=== PATIENT | male | born 1945 | race Caucasian/White ===

== ENCOUNTER 2018-06-25 13:54 | Emergency (ER) | payer SELFPAY ==
[~2018-06-25] VITALS: Ht 154.9 cm; Wt 59.0 kg
[2018-06-25 13:57] VITALS: Ht 154.9 cm; Wt 59.0 kg
[2018-06-25 15:07] VITALS: BP 100/61
== END 2018-06-25 15:07 | disposition home or self-care (01) ==
LOC: ED 13:54
DX: S01.01XA Laceration without foreign body of scalp, initial encounter (principal); E11.9 Type 2 diabetes mellitus without complications; W22.8XXA Striking against or struck by other objects, initial encounter; Y93.89 Activity, other specified; Y92.89 Other specified places as the place of occurrence of the external cause; Y99.8 Other external cause status
CPT/HCPCS: 82962; J2001